=== PATIENT | female | born 1965 | race Caucasian/White ===

== ENCOUNTER 2018-09-13 14:56 | Observation (INO) ==
[2018-09-13] MEDS ORDERED: ZOFRAN IV PRN (15:40)
[2018-09-13] MEDS ORDERED: ZOFRAN PO PRN (15:41)
[2018-09-13 16:09] LABS: HEMATOCRIT 39.8 % (37.0-47.0); HEMOGLOBIN 12.5 g/dL (12.0-16.0); MCH 27.7 PG (27-31); MCHC 31.4 g/dL (33-37); MCV 88.2 FL (81-99); MPV 9.8 FL (7.4-10.4); RBC 4.51 XMIL (4.2-5.4); RDW 13.7 % (11.5-14.5); WBC 11.54 X1000 (4.8-10.8)
[2018-09-13 16:25] LABS: AGAP 15; ALB/GLOB RATIO 0.8; ALBUMIN 3.3 g/dL (3.5-5.0); ALKALINE PHOSPHATASE 123 U/L (32-104); BUN 7 mg/dL (8-22); CALCIUM 9.8 mg/dL (8.8-10.2); CHLORIDE 97 mmol/L (98-107); COSMO 270; CREATININE 0.7 mg/dL (0.5-0.9); ESTIMATED GFR > 60; GLUCOSE 105 mg/dL (70-104); GOT 26 U/L (10-30); GPT 22 U/L (10-36); POTASSIUM 4.7 mmol/L (3.5-5.1); SODIUM 136 mmol/L (136-145); TCO2 24 mmol/L (25-35); TOTAL BILIRUBIN 0.19 mg/dL (0.20-1.00); TOTAL PROTEIN 7.4 g/dL (6.3-8.3)
[2018-09-13] MEDS: 1/2 NS 1,000 ML IV SCH (16:47)
[2018-09-13] MEDS: MORPHINE IV PRN ×3 (16:47→21:51)
[2018-09-13] MEDS: ZOSYN 3.375 GM in NS 50 ML IV SCH ×2 (16:47→21:51)
[2018-09-13] MEDS: XANAX PO SCH ×2 (23:25→23:26)
[2018-09-13] MEDS: VENTOLIN HFA INH PRN (23:48)
[2018-09-14] MEDS: MORPHINE IV PRN ×5 (01:25→21:00)
[2018-09-14] MEDS: LITHIUM CARBONATE PO SCH ×3 (01:25→21:00)
[2018-09-14] MEDS: SYNTHROID PO SCH ×2 (04:55→12:40)
[2018-09-14] MEDS: PRILOSEC PO SCH ×2 (04:55→12:40)
[2018-09-14] MEDS: ZOSYN 3.375 GM in NS 50 ML IV SCH ×4 (04:56→21:01)
[2018-09-14 07:15] LABS: URINE SOURCE CATH
[2018-09-14 07:18] LABS: BILIRUBIN URINE NEGATIVE (NEGATIVE); BLOOD URINE NEGATIVE (NEGATIVE); COLOR STRAW; GLUCOSE URINE NEGATIVE (NEGATIVE); KETONE URINE NEGATIVE (NEGATIVE); LEUKOCYTES URINE NEGATIVE (NEGATIVE); NITRITE URINE NEGATIVE (NEGATIVE); PROTEIN URINE NEGATIVE (NEGATIVE); TURBIDITY URINE CLEAR (CLEAR); UROBILINOGEN URINE NORMAL (NORMAL)
[2018-09-14 07:19] LABS: UR EPITHELIAL CELLS <10 /HPF (<10); URINE BACTERIA NEGATIVE /HPF; URINE RBC <10 /HPF (<10); URINE WBC <10 /HPF (<10)
[2018-09-14] MEDS ORDERED: IMODIUM PO PRN (07:28)
[2018-09-14] MEDS: NICODERM PATCH TD PRN (09:54)
[2018-09-14] MEDS: LAMICTAL PO SCH (09:54)
[2018-09-14] MEDS: XANAX PO SCH ×3 (09:54→17:35)
[2018-09-14] MEDS: SINGULAIR PO SCH (09:54)
[2018-09-14] MEDS: HYZAAR 50/12.5 MG PO SCH (09:55)
[2018-09-14] MEDS: CRESTOR PO SCH (09:55)
[2018-09-14] MEDS: GLUCOPHAGE PO SCH (09:56)
[2018-09-14] MEDS: ZYRTEC PO SCH (09:56)
[2018-09-14] MEDS: ANORO ELLIPTA 62.5-25 MCG INH INH SCH ×2 (10:30→19:10)
[2018-09-14] MEDS: VENTOLIN HFA INH PRN ×2 (10:31→17:06)
[2018-09-14] MEDS: 1/2 NS 1,000 ML IV SCH (21:00)
[2018-09-15] MEDS: MORPHINE IV PRN ×6 (02:35→23:42)
[2018-09-15] MEDS: PRILOSEC PO SCH (06:34)
[2018-09-15] MEDS: SYNTHROID PO SCH (06:34)
[2018-09-15] MEDS: ZOSYN 3.375 GM in NS 50 ML IV SCH ×4 (06:35→21:48)
[2018-09-15] MEDS: ANORO ELLIPTA 62.5-25 MCG INH INH SCH (09:58)
[2018-09-15] MEDS: VENTOLIN HFA INH PRN ×2 (10:01→16:53)
[2018-09-15] MEDS: GLUCOPHAGE PO SCH (10:27)
[2018-09-15] MEDS: SINGULAIR PO SCH (10:27)
[2018-09-15] MEDS: CRESTOR PO SCH (10:28)
[2018-09-15] MEDS: LITHIUM CARBONATE PO SCH ×2 (10:28→21:48)
[2018-09-15] MEDS: ZYRTEC PO SCH (10:28)
[2018-09-15] MEDS: LAMICTAL PO SCH (10:29)
[2018-09-15] MEDS: XANAX PO SCH ×3 (10:29→21:48)
[2018-09-15] MEDS: NICODERM PATCH TD PRN (10:31)
[2018-09-15] MEDS: HYZAAR 50/12.5 MG PO SCH (10:38)
[2018-09-15] MEDS: 1/2 NS 1,000 ML IV SCH (23:42)
[2018-09-16] MEDS: MORPHINE IV PRN ×3 (03:15→12:09)
[2018-09-16] MEDS: ZOSYN 3.375 GM in NS 50 ML IV SCH ×2 (04:00→09:34)
[2018-09-16] MEDS: SYNTHROID PO SCH (07:00)
[2018-09-16] MEDS: PRILOSEC PO SCH (07:00)
[2018-09-16] MEDS: VENTOLIN HFA INH PRN (08:39)
[2018-09-16] MEDS: ANORO ELLIPTA 62.5-25 MCG INH INH SCH (08:39)
[2018-09-16] MEDS: CRESTOR PO SCH (08:54)
[2018-09-16] MEDS: ZYRTEC PO SCH (08:55)
[2018-09-16] MEDS: LITHIUM CARBONATE PO SCH (08:55)
[2018-09-16] MEDS: XANAX PO SCH (08:55)
[2018-09-16] MEDS: HYZAAR 50/12.5 MG PO SCH (08:56)
[2018-09-16] MEDS: NICODERM PATCH TD PRN (08:56)
[2018-09-16] MEDS: GLUCOPHAGE PO SCH (08:57)
[2018-09-16] MEDS: SINGULAIR PO SCH (08:57)
[2018-09-16] MEDS: LAMICTAL PO SCH (08:57)
[2018-09-16 11:32] VITALS: BP 120/68
--- NOTE | 2018-10-15 11:17 | HISTORY AND PHYSICAL ---
DIAGNOSIS: Blown out perirectal abscess with skin necrosis around the anus. PLAN: Admission, IV antibiotics, debridement, and pain control. HISTORY OF PRESENT ILLNESS: The patient is a 53-year-old, white female seen in the office with a large necrotic blowout in the perianal area on the left side from previous perirectal abscess. There is a foul odor. She has been trying to take care of this at home but it just has been getting progressively worse. PAST HISTORY: She is obese. Does not have diabetes. PHYSICAL EXAMINATION: GENERAL: Reveals a middle-aged, white female in moderate discomfort. HEAD AND NECK EXAMINATION: She is normocephalic, atraumatic. Pupils equal and reactive. Ears, nose, and throat are negative. CHEST: Chest is clear. Breasts and axillary negative. GASTROINTESTINAL: Abdomen is obese with active bowel sounds. Nontender. RECTAL: There is a tender blown out necrotic area in the left buttock area adjacent to the anus, indicative of previous perirectal abscess. It is necrosed and decompressed. : Otherwise negative. NEUROLOGICAL: Intact. IMPRESSION: Blown out perirectal abscess with skin necrosis. PLAN: Procedure is planned this admission. IV antibiotics and pain control. cc: Benjamin Domingo MD
--- NOTE | 2018-10-15 12:26 | DISCHARGE SUMMARY ---
ADMISSION DATE: 09/13/2018 DISCHARGE DATE: 09/16/2018 DIAGNOSIS: Blown out perirectal abscess with skin and subcutaneous loss. PROCEDURE PERFORMED: IV antibiotics, warm soaks but no surgery HOSPITAL COURSE: The patient is a 53-year-old, white female seen in the office with a blown out perirectal abscess. She was admitted, given IV antibiotics and pain control. Cultures eventually grew enterococcus sensitive to everything. She improved with her hospitalization and IV antibiotics was subsequently allowed home on [place], Zofran, Colace. and Keflex. FOLLOWUP: She will be seen in the office in 1 week's time. She may develop a fistula in the future. cc: Benjamin Domingo MD
== END 2018-09-16 12:38 | disposition home or self-care (01) ==
LOC: INTOOBSV 14:56 → DIRADM 14:56 → 4N 15:03
PROVIDERS: ADMIT Surgery; ATTEND Surgery
CPT/HCPCS: 80053; 81001; 82378; 82948; 85027; 87070; 87077; 87186; 94640; 94761; A9270; J2270; J2405; J2543; XXXXX